=== PATIENT | female | born 1980 ===

== ENCOUNTER 2021-12-28 09:19 | Day surgery (SDC) | payer BC ==
[2021-12-25 08:27] VITALS: BMI 21.6
[~2021-12-28 09:19] MED LIST: DEXAMETHASONE SOD PHOSPHATE 4 MG/ML 1 ML VIAL IV ONE; HYDROmorphone 0.5 MG/0.5 ML SYRINGE IVP PRN; LACTATED RINGERS 1,000 ML IV SCH; LIDOCAINE 1% (10MG/ML) FOR IV START INTRADERMA PRN; MIDAZOLAM 2 MG/2 ML VIAL IV PRN; ONDANSETRON 4 MG/2 ML VIAL IVP ONE
[2021-12-28] MEDS ORDERED: fentaNYL (PF) 50 MCG/ML 2 ML AMP ONE (11:45)
[2021-12-28] MEDS ORDERED: PROPOFOL 10 MG/ML 20 ML VIAL IV ONE (11:45)
[2021-12-28] MEDS ORDERED: LIDOCAINE 1% INJ 10MG/ML (20 ML MDV) ONE (11:45)
[2021-12-28] MEDS ORDERED: MIDAZOLAM 2 MG/2 ML VIAL ONE (11:45)
[2021-12-28] MEDS ORDERED: SILVER NITRATE APPLICATOR 1 EACH STICK..EA. TOPICAL ONE (12:17)
--- NOTE | 2021-12-28 12:25 | P.OP ---
Date of Procedure: 12/28/21 Preoperative Diagnosis: Menometrorrhagia Postoperative Diagnosis: Menometrorrhagia Procedure(s) Performed: Diagnostic hysteroscopy and NovaSure endometrial ablation Anesthesia: MAC Surgeon: Dorcas Ogden Estimated Blood Loss (ml): 5 IV fluids (ml): 300 Urine output (ml): 50 Pathology: none sent Condition: stable Disposition: PACU Indications for Procedure: Menometrorrhagia Operative Findings: Normal interior uterine cavity with fluffy endometrium. Description of Procedure: After the patient was met in the preoperative holding area and all questions were answered, she was taken to the operating room where anesthetic was administered without incident. She was in positioned, prepped and draped in the dorsal lithotomy position. Exam under anesthetic was undertaken. Bladder was drained for 50 mL of clear urine. Speculum was placed in the vagina and the cervix was grasped anteriorly with a single-tooth tenaculum. Uterus was sounded to 9 cm. Cervix was sequentially dilated to allow for passage of the diagnostic hysteroscope. Hysteroscope was introduced and the above findings were noted. Hysteroscope was removed and the cervix was further dilated to allow for passage of the NovaSure ablation device. Device was inserted with a cavity length of 5.0 and a width of 3.8 cm. Cavity assessment test was passed. Treatment cycle was undertaken for a treatment time of 120 seconds with a power of 105 W. Following cessation of the treatment cycle the device was removed. Hysteroscope was reintroduced and complete desiccation of the endometrium was appreciated. All instrument's are then removed from the vagina. Cervix was observed. Silver nitrate was applied to tenaculum sites on the cervix. Hemostasis was noted. All counts were correct. Patient was transported to recovery in good condition.
[2021-12-28 12:35] VITALS: TEMP 98.3
[2021-12-28] MEDS ORDERED: KETOROLAC 15 MG/ML 1 ML VIAL IVP ONE (12:40)
[2021-12-28 13:43] VITALS: RESP 18
[2021-12-28 13:59] VITALS: BP 131/70; PULSE 68
== END 2021-12-28 14:27 | disposition home or self-care (01) ==
LOC: OR 09:19
PROVIDERS: ATTEND Obstetrics & Gynecology
DX: N92.1 Excessive and frequent menstruation with irregular cycle (principal)
CPT/HCPCS: 58563; 81025; J2250; J1100; J2405; J2001; J3010; J1885; J2704; J1170